=== PATIENT | male | born 1955 | race Caucasian/White ===

== ENCOUNTER 2019-05-21 08:04 | Outpatient (CLI) | payer BC, SELFPAY ==
--- NOTE | ~2019-05-21 | US_ITS ---
EXAMINATION: US abdomen complete DATE: 05/21/2019 09:27 INDICATION: Abdominal distention TECHNIQUE: Multiple grayscale and Doppler ultrasound images of the abdomen were obtained. COMPARISON: 05/26/2010; CT, 03/07/2016 FINDINGS: Bowel gas obscures visualization of the pancreas. The visualized portions of the pancreas are unremarkable. Cysts of the liver measure up to 1.2 cm. The liver is otherwise normal with normal echogenicity and echotexture. No surface nodularity. Normal hepatopetal flow in the main portal vein. The gallbladder is surgically absent. The normal common bile duct measures 4 mm. The visualized port ions of the aorta and inferior vena cava are normal. The right kidney measures 10.9 x 5.7 x 5.7 cm. The left kidney measures 10.2 x 6.4 x 5.3 cm. The kidn eys demonstrate normal parenchymal echogenicity. There is no hydronephrosis. The spleen is normal in appearance and measures 11.3 cm. IMPRESSION: 1. No sonographic correlate for the patient's symptoms. Reviewed, dictated and finalized at location A. TACKER
[2019-05-21 10:14] LABS: Basophils Absolute Auto 0.1 K/mm3 (0.0-0.1); Basophils Percent Auto 1.1 % (0.2-1.2); Eosinophils Absolute Auto 0.1 K/mm3 (0-0.3); Eosinophils Percent Auto 1.6 % (0-4.4); Hematocrit 44.2 % (42.0-52.0); Hemoglobin 14.9 g/dL (14.0-18.0); Immature Granulocyte Absolute 0.01 K/mm3 (0.00-0.031); Immature Granulocyte Percent A 0.2 % (0-0.5); Lymphocytes Absolute Auto 0.93 K/mm3 (0.9-3.2); Mean Corpuscular HGB Conc 33.7 g/dl (32-36); Mean Corpuscular Hemoglobin 30.8 pg (26-34); Mean Corpuscular Volume 91.3 fl (80-100); Monocytes Absolute Auto 0.4 K/mm3 (0.1-0.6); Monocytes Percent Auto 9.3 % (2.6-8.5); Neutrophils Percent Auto 66.8 % (45.5-73.1); Platelet Count Result 215 k/mm3 (150-375); Red Blood Count 4.84 M/mm3 (4.6-6.20); Red Cell Distribution Width 12.3 % (11.5-14.5); White Blood Count 4.4 K/mm3 (4.5-10.0)
[2019-05-21 10:27] LABS: Alanine Aminotransferase 35 U/L (4-50); Albumin Level 4.4 g/dL (3.5-5.1); Alkaline Phosphatase 40 U/L (38-126); Amylase 72 U/L (30-110); Aspartate Amino Transferase 31 U/L (17-59); Blood Urea Nitrogen 20 mg/dL (9-20); Calcium 9.4 mg/dL (8.4-10.2); Carbon Dioxide 29 mmol/L (22-30); Chloride 103 mmol/L (98-107); Estimated Glomerular Filt Rate > 60; Glucose 93 mg/dL (75-110); Lipase 76 U/L (23-300); Sodium 141 mmol/L (137-145)
== END 2019-05-21 08:05 | disposition home or self-care (01) ==
LOC: ANHIMG 08:11
PROVIDERS: PCP Internal Medicine; Visit Provider Internal Medicine
DX: R10.11 Right upper quadrant pain (principal); R14.0 Abdominal distension (gaseous)
CPT/HCPCS: 36415; 76700; 80048; 80076; 82150; 83690; 85025

== ENCOUNTER 2019-05-31 02:16 | Day surgery (SDC) | payer BC, SELFPAY ==
[2019-05-23 14:55] VITALS: BMI 25.0
[2019-05-31 09:10] VITALS: BP 147/82; PULSE 76; RESP 20; TEMP 36.3; O2SAT 100; BMI 25.6
--- NOTE | 2019-05-31 09:32 | P.PNAN_ITS ---
Anes - Initial Pre Proc Eval Procedure: Operation Date: 05/31/19 10:00 Proposed Procedures p Esophagogastroduodenoscopy - Timi Kaminski MD Date/Time: 05/31/19 09:32 Surgeon: Timi Kaminski MD Pre Op Diagnosis: RUQ Pain and Abdominal Distention Patient Data Age: 64 Gender: M Height: 1.78 m Weight: 79 kg Allergies Allergy/AdvReac Type Severity Reaction Status Date / Time prochlorperazine Allergy Severe ANXIETY, Verified 05/31/19 09:27 SOB Home Medications Medication Instructions Recorded Confirmed Type candesartan 32 mg tablet 32 mg PO DAILY PRN 02/12/19 05/23/19 History cholestyramine-aspartame 4 gram 4 gm PO BID 02/12/19 05/23/19 History oral powder for susp in a packet lorazepam 0.5 mg tablet 0.5 mg PO TID PRN 02/12/19 History rosuvastatin 20 mg tablet 20 mg PO DAILY 02/12/19 05/23/19 History azelastine-fluticasone 137 mcg-50 1 spray NASAL BID #23 gm 03/12/19 05/23/19 Rx mcg/spray nasal spray omega-3 fatty acids 1,000 mg 2,000 mg PO BID cap 04/09/19 History capsule amlodipine 5 mg tablet 5 mg PO DAILY #90 tablet 04/23/19 05/23/19 Rx pantoprazole 40 mg tablet,delayed 40 mg PO DAILY #30 tablet 05/21/19 05/23/19 Rx release Patient hx anesthesia problems: none Family hx anesthesia problems: none PMFSH Past Medical History Medical History (Updated 05/21/19 @ 07:11 by Jayashree Brooks CMA) Abdominal bloating Abdominal pain Benign essential hypertension BMI 26.0-26.9,adult Encounter for routine adult health examination without abnormal findings Encounter for special screening examination for neoplasm of prostate Hyperlipidemia Low back pain On retirement drug therapy Right hip pain Right knee meniscal tear Social History Social History Second hand tobacco smoke exposure: No Smoking end date: 03/28/80 Alcohol intake: current Gender identity (if verbalized by the patient): Male Anes - Eval Final PreProcedure Day of Procedure 03/05/20 09:32 Patient weight: normal Heart: regular rate and rhythm Lungs: clear to auscultation and normal air movement Airway: Mallampati scale class II Neurological: alert and oriented Last oral intake: >/= 8 hours ASA classification: II Emergent: no Anesthetic plan: proceed Anesthesia type and monitoring: general GIVS and standard monitoring Informed Consent: The patient's anesthetic plan and its attendant risks and benefits were discussed with the patient/family/POA. Questions were solicited and answers provided to the satisfaction of the patient/family/POA.
--- NOTE | 2019-05-31 09:48 | P.CONGI_ITS ---
Assessment and Plan Additional Plan This is a 64-year-old white male patient seen in evaluation at the request of Dr.Tibor Francois. patient reports right upper quadrant pain that spreads to the mid epigastric area associated with abdominal distention and bloating. Symptoms have been present for many weeks. He recently has started pantoprazole 40 mg p.o. daily over the last 10 days with slight improvement. Patient denies any dysphagia. He denies any weight loss. Recent ultrasound of the right upper quadrant was unremarkable. He has a history of a colonoscopy 7 years ago that was unremarkable. Family history noncontributory. Past medical history is significant for hypertension, hyperlipidemia, medications include amlodipine, candesartan, cholestyramine, lorazepam, fish oil, pantoprazole. Rosuvastatin. Physical exam reveals patient be somewhat anxious. Vital signs stable. HEENT exam unremarkable. He is anicteric. Lungs are clear to auscultation and percussion. Heart is without murmur or extra sounds. Abdominal exam bowel sounds are present soft nontender no masses are noted. His abdomen is mildly p rotuberant. impression right upper quadrant and epigastric pain. Associated with abdominal bloating and distention. Appears to be related to dietary intake. Sometimes better after eating. this may represent dyspepsia. plan: agree with proton pump inhibitor trial. An EGD will be performed. Further recommendations subsequently GI Consult Note Consult date/time: 05/31/19 09:48 HPI: Timi Ballesteros is a 64 year old male [facility], [facility] Past Medical History Medical History (Updated 05/21/19 @ 07:11 by Jayashree Brooks CMA) Abdominal bloating Abdominal pain Benign essential hypertension BMI 26.0-26.9,adult Encounter for routine adult health examination without abnormal findings Encounter for special screening examination for neoplasm of prostate Hyperlipidemia Low back pain On correction drug therapy Right hip pain Right knee meniscal tear Social History Social History Second hand tobacco smoke exposure: No Smoking end date: 03/28/80 Alcohol intake: current Gender identity (if verbalized by the patient): Male Meds Home Medications and Allergies Home Medications Medication Instructions Recorded Confirmed Type candesartan 32 mg tablet 32 mg PO DAILY PRN 02/12/19 05/23/19 History cholestyramine-aspartame 4 gram 4 gm PO BID 02/12/19 05/23/19 History oral powder for susp in a packet lorazepam 0.5 mg tablet 0.5 mg PO TID PRN 02/12/19 History rosuvastatin 20 mg tablet 20 mg PO DAILY 02/12/19 05/23/19 History azelastine-fluticasone 137 mcg-50 1 spray NASAL BID #23 gm 03/12/19 05/23/19 Rx mcg/spray nasal spray omega-3 fatty acids 1,000 mg 2,000 mg PO BID cap 04/09/19 History capsule amlodipine 5 mg tablet 5 mg PO DAILY #90 tablet 04/23/19 05/23/19 Rx pantoprazole 40 mg tablet,delayed 40 mg PO DAILY #30 tablet 05/21/19 05/23/19 Rx release Allergies Allergy/AdvReac Type Severity Reaction Status Date / Time prochlorperazine Allergy Severe ANXIETY, Verified 05/31/19 09:27 SOB Vital Signs Vital Signs - 24 hr 05/31/19 09:10 Temperature 36.3 C L Pulse Rate 76 Respiratory Rate 20 Blood Pressure 147/82
[2019-05-31] MEDS: LACTATED RINGERS 1,000 ML 150 ML IV CONT (09:50)
[2019-05-31] MEDS: MIDAZOLAM HCL 2 MG/2 ML VIAL IV PUSH (09:50)
[2019-05-31] MEDS: BENZOCAINE (*SP) 60 ML SPRAY CAN (HURRICAINE) 1 SPRAY MUCOUS MEM (10:05)
[2019-05-31 10:17] VITALS: BP 116/73; PULSE 78; RESP 22; O2SAT 98
[2019-05-31 10:27] VITALS: BP 120/77; PULSE 78; RESP 18; O2SAT 100
[2019-05-31 10:37] VITALS: BP 132/97; PULSE 77; RESP 19; O2SAT 100
== END 2019-05-31 10:56 | disposition home or self-care (01) ==
PROVIDERS: PCP Internal Medicine; Visit Provider Internal Medicine Gastroenterology
PROC: 0DJ08ZZ Inspection of Upper Intestinal Tract, Via Natural or Artificial Opening Endoscopic (ICD-10-PCS; CPT 43235; principal; 2019-05-31 10:00)
DX: R10.13 Epigastric pain (principal); R10.11 Right upper quadrant pain; I10 Essential (primary) hypertension; E78.5 Hyperlipidemia, unspecified
CPT/HCPCS: 43239; 87081; J2250; J2704; J7120

== ENCOUNTER 2020-03-07 11:51 | Emergency (ER) | payer MEDICARE, SELFPAY ==
--- NOTE | ~2020-03-07 | CT_ITS ---
EXAMINATION: CT abdomen pelvis w con DATE: 03/07/2020 13:57 INDICATION: Abdominal pain. Nausea. TECHNIQUE: Computed tomography (CT) of the abdomen and pelvis was performed with 100 mL Omnipaque 350 intravenous contrast. Automated exposure control and iterative reconstruction technique were employe d. The dose-length product was 544.95 mGy-cm. COMPARISON: CT abdomen and pelvis 03/07/2016 FINDINGS: The visualized portions of the lung bases demonstrate mild atelectasis. No pleural effusion . The heart size is normal. There are coronary artery calcifications. No pericardial effusion. There are cysts in the liver measuring up to 14 mm. There is an 8 mm mass in the spleen, likely granulomato us disease or a hemangioma. The pancreas and adrenal glands are normal. There is cortical thinning in right kidney. There is a 10 mm cyst in left kidney. Stool distends the rectum. There is diverticulos is of the colon without evidence of diverticulitis. The appendix is normal. There are no pathological ly enlarged lymph nodes. There is a small left inguinal hernia containing fat. There is no free intra peritoneal fluid. There is moderate lower lumbar spondylosis. IMPRESSION: 1. Stool distends the rectum. 2. Small left inguinal hernia containing fat. Reviewed, dictated and finalized at location B. ILE DYER
[2020-03-07 12:00] VITALS: BP 153/81; PULSE 70; RESP 18; TEMP 36.2; O2SAT 100
--- NOTE | 2020-03-07 13:01 | ED.ABDPAIN ---
HPI - Abdominal Pain General Chief Complaint: Abdominal Pain Stated Complaint: possible kidney stone Time Seen by Provider: 03/07/20 12:49 Source: RN notes reviewed History of Present Illness HPI narrative: Patient presents emergency room from home for abdominal pain. Patient states pain began approximately 8 AM this morning pain is located bilateral lower abdomen described as a pressure states is associated with nausea. He states that he does note feeling of needing to urinate but pain with urination he states he does have a history of kidney stones and this does feel like prior he denies any fevers or chills chest pain shortness of breath or any other symptoms states he took no previous pain medication at home Related Data Home Medications Medication Instructions Recorded Confirmed omega-3 fatty acids 1,000 mg 2,000 mg PO BID cap 04/09/19 01/28/20 capsule cholecalciferol (vitamin D3) 250 250 mcg PO DAILY 01/28/20 01/28/20 mcg (10,000 unit) capsule niacin 500 mg tablet 500 mg PO DAILY 01/28/20 01/28/20 Allergies Allergy/AdvReac Type Severity Reaction Status Date / Time prochlorperazine Allergy Severe ANXIETY, Verified 03/07/20 12:50 SOB Review of Systems Review of Systems: Narrative: Gen.: Denies fevers or chills ENT: Denies congestion Respiratory: Denies shortness of breath or cough CV: Denies chest pain or palpitations GI: See HPI reports pain with urination Musculoskeletal: Denies back pain or muscle pain Neuro: Denies numbness, tingling, weakness or focal weakness Skin: Denies rash Except as documented, all other systems reviewed and negative [facility] Past Medical History Medical History (Updated 03/07/20 @ 14:20 by Timmy Posey DO) Abdominal bloating Abdominal pain Benign essential hypertension BMI 25.0-25.9,adult BMI 26.0-26.9,adult Encounter for routine adult health examination without abnormal findings Encounter for special screening examination for neoplasm of prostate Follow up Hyperlipidemia Low back pain On alf drug therapy Right hip pain Right knee meniscal tear Family History Family History Mother Family history of chronic obstructive pulmonary disease Father Family history of diabetes mellitus in first degree relative Family history of heart disease in male family member before age 55 Diabetes mellitus Family history of cardiovascular disease Social History Social History Smoking status: Never smoker Second hand tobacco smoke exposure: No Smoking end date: 03/28/80 Alcohol intake: current Gender identity (if verbalized by the patient): Male Exam Narrative: Exam Narrative: APPEARANCE: No acute distress, nontoxic, resting in bed HEENT: Normocephalic, atraumatic, OMM RESPIRATORY: No respiratory distress, clear to auscultation bilaterally with no rhonchi wheezing or rales CARDIOVASCULAR: RRR s murmur ABDOMINAL: Soft, nondistended, tender palpation right lower quadrant left lower quadrant no tenderness right upper quadrant left lower quadrant no rebound or guarding MUSCULOSKELETAl: Moves all extremities. No clubbing, cyanosis or edema. NEURO: Awake and alert. Following commands, speech normal, no focal deficits SKIN:: Warm, dry. Normal Color PSYCHIATRIC: Normal affect/mood Course Course Emergency Course: Patient's abdomen is soft without significant pain or signs of surgical abdomen on serial exams. Lab and x-ray evaluations are reviewed and patient is felt to be a reasonable candidate for outpatient management. Patient was instructed as to limitations of x-ray and laboratory evaluation and encouraged to return to ED or primary physician for repeat exam in 12 hours if continued or worsening pain. I did discuss with patient CT results showing constipation I discussed enema in ED versus going home with magnesium citrate patient would prefer to go
[2020-03-07] MEDS: ONDANSETRON INJ 4 MG/2 ML VIAL IV PUSH (13:21)
[2020-03-07] MEDS: SODIUM CHLORIDE 0.9% IV 1,000 ML 999 ML IV CONT (13:22)
[2020-03-07 13:29] LABS: Basophils Percent Auto 0.5 % (0.2-1.2); Eosinophils Absolute Auto 0.1 K/mm3 (0-0.3); Eosinophils Percent Auto 1.3 % (0-4.4); Hematocrit 42.9 % (42.0-52.0); Hemoglobin 14.8 g/dL (14.0-18.0); Immature Granulocyte Absolute 0.02 K/mm3 (0.00-0.031); Immature Granulocyte Percent A 0.2 % (0-0.5); Lymphocytes Absolute Auto 0.83 K/mm3 (0.9-3.2); Lymphocytes Percent Auto 9.6 % (18.3-44.2); Mean Corpuscular HGB Conc 34.5 g/dl (32-36); Mean Corpuscular Hemoglobin 31.6 pg (26-34); Mean Corpuscular Volume 91.5 fl (80-100); Mean Platelet Volume 9.4 fl (7.4-10.4); Monocytes Absolute Auto 0.5 K/mm3 (0.1-0.6); Monocytes Percent Auto 6.2 % (2.6-8.5); Neutrophils Absolute Auto 7.1 K/mm3 (1.3-6.7); Neutrophils Percent Auto 82.2 % (45.5-73.1); Platelet Count Result 205 k/mm3 (150-375); Red Blood Count 4.69 M/mm3 (4.6-6.20); Red Cell Distribution Width 12.5 % (11.5-14.5); White Blood Count 8.7 K/mm3 (4.5-10.0)
[2020-03-07 13:31] LABS: Add Urine Microscopic? NO; Appearance Urine Clear (Clear); Bilirubin Urine Negative (Negative); Blood Urine Negative (Negative); Color Urine Yellow (Yellow); Glucose Urine UA Negative (Negative); Ketones Urine Negative (Negative); Leukocyte Esterase Ur Negative LEU/UL (Negative); Nitrate Urine Negative (Negative); Protein Urine Negative (Negative); Specific Grav Ur 1.021 (1.001-1.035); Urobilinogen Urine Negative mg/dL (<2.0)
[2020-03-07 13:42] LABS: Alanine Aminotransferase 53 U/L (4-50); Alkaline Phosphatase 51 U/L (38-126); Anion Gap 5 mmol/L (8-16); Aspartate Amino Transferase 51 U/L (17-59); Blood Urea Nitrogen 23 mg/dL (9-20); Calcium 9.1 mg/dL (8.4-10.2); Carbon Dioxide 29 mmol/L (22-30); Chloride 102 mmol/L (98-107); Estimated CRCL calculation 83 ml/min; Estimated Glomerular Filt Rate > 60; Glucose 102 mg/dL (75-110); Lipase 75 U/L (23-300); Sodium 136 mmol/L (137-145)
== END 2020-03-07 14:38 | disposition home or self-care (01) ==
PROVIDERS: Emergency Provider Emergency Medicine; PCP Internal Medicine
DX: K59.00 Constipation, unspecified (principal); E78.5 Hyperlipidemia, unspecified
CPT/HCPCS: 36415; 74177; 80053; 81003; 83690; 85025; 96361; 96374; 96375; 99284; J0131; J2405; J7030; Q9967

== ENCOUNTER 2020-08-07 11:11 | Emergency (ER) | payer MEDICARE, SELFPAY ==
[2020-08-07 11:25] VITALS: BP 147/94; PULSE 74; RESP 15; TEMP 36.4; O2SAT 100
--- NOTE | 2020-08-07 12:02 | ED.GENADULT ---
HPI - General Adult General Chief complaint: Wound/Laceration Stated complaint: Lacertion on forehead Time Seen by Provider: 08/07/20 11:42 Source: patient and RN notes reviewed Mode of arrival: ambulatory (carried) Limitations: no limitations History of Present Illness HPI narrative: 65-year-old male presents with complaints of lacerations to face caused by hitting face on car trunk for the past 30 minutes. Timi reports walking into raised trunk on car causing facial injury. Pressure applied to control bleeding and came to [facility] treatment. No loss of consciousness, blurred vision, double vision, dizziness, or seizure activity. Denies vertigo or immobility. Denies nausea or vomiting. Tolerating po intake well. Denies pain, numbness or tingling, or weakness of upper or lower extremities. No foreign body sensation. Tetanus not up-to-date, Timi refuse tetanus today. Remains active. The patient reports he have not been diagnosed with COVID-19. The patient reports he received 2 Pfizer COVID-19 vaccines, last over a month ago. The patient reports he had to wait 4 months before any other vaccines. The patient reports he is not waiting for the results of a COVID-19 lab test. The patient reports he do not have chills, weakness, or fatigue. The patient reports he do not have a new or worsening cough or shortness of breath. Denies chest pain. The patient reports he do not have any rhinorrhea, congestion, loss of taste or smell, sore throat, abdominal pain, and diarrhea. Denies recent traveling. Denies concerns for COVID-19 or exposures been home with limited outdoor exposure except for essential household needs, work, and return home. At this time, patient is not suspected of having COVID-19. Some parts of this dictation were generated by voice recognition software and may contain typographical and/or grammatical inaccuracies Related Data Home Medications Medication Instructions Recorded Confirmed omega-3 fatty acids 1,000 mg 2,000 mg PO BID cap 04/09/19 08/07/20 capsule niacin 500 mg tablet 500 mg PO DAILY 01/28/20 08/07/20 Allergies Allergy/AdvReac Type Severity Reaction Status Date / Time prochlorperazine Allergy Severe ANXIETY, Verified 08/07/20 11:15 SOB Review of Systems Review of Systems: Narrative: CONSTITUTIONAL: Denies fever, chills, sweats. EYES: Denies visual changes, redness, discharge. ENT: Denies rhinorrhea, congestion, sore throat, otalgia. CARDIOVASCULAR: Denies chest pain, palpitations, edema. RESPIRATORY: Denies dyspnea, wheezing, cough. GASTROINTESTINAL: Denies abdominal pain, nausea, vomiting, diarrhea. SKIN: Denies rash or itching. Complains of lacerations to nose and above left eye. MUSCULOSKELETAL: Denies acute back pain, joint pain, or myalgia. NEUROLOGIC: Denies numbness or focal weakness. PSYCHIATRIC: Denies anxiety or depression. All other systems reviewed are negative, except as documented in HPI and below. 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
== END 2020-08-07 12:10 | disposition home or self-care (01) ==
PROVIDERS: Emergency Provider Nurse Practitioner Family; PCP Internal Medicine
DX: S01.21XA Laceration without foreign body of nose, initial encounter (principal); W22.8XXA Striking against or struck by other objects, initial encounter; Z87.891 Personal history of nicotine dependence; F41.9 Anxiety disorder, unspecified; I10 Essential (primary) hypertension; K21.9 Gastro-esophageal reflux disease without esophagitis; E78.5 Hyperlipidemia, unspecified
CPT/HCPCS: 12011; 99213; G0463

== ENCOUNTER 2021-01-30 01:44 | Day surgery (SDC) | payer MEDICARE, SELFPAY ==
[2021-01-19 14:36] VITALS: BMI 25.1
[2021-01-30 08:08] VITALS: BP 122/78; PULSE 82; RESP 20; TEMP 36.4; O2SAT 98; BMI 25.0
[2021-01-30] MEDS: LACTATED RINGERS 1,000 ML 150 ML IV CONT (08:14)
--- NOTE | 2021-01-30 08:15 | WPDANESEPPF ---
Anes - Initial Pre Proc Eval Procedure: Operation Date: 01/30/21 09:00 Proposed Procedures p Colonoscopy - Timi Kaminski MD Date/Time: 01/30/21 08:15 Surgeon: Timi Kaminski MD Pre Op Diagnosis: change in bowel habits Patient Data Age: 65 Gender: M Height: 1.78 m Weight: 79 kg Last Vital Signs Temp 36.4 C L 01/30/21 08:08 Pulse 82 01/30/21 08:08 Resp 20 01/30/21 08:08 BP 122/78 01/30/21 08:08 Pulse Ox 98 01/30/21 08:08 Allergies Allergy/AdvReac Type Severity Reaction Status Date / Time prochlorperazine Allergy Severe ANXIETY, Verified 01/30/21 08:06 SOB Home Medications Medication Instructions Recorded Confirmed Type omega-3 fatty acids 1,000 mg 2,000 mg PO BID cap 04/09/19 01/20/21 History capsule niacin 500 mg tablet 500 mg PO DAILY 01/28/20 01/20/21 History aspirin 81 mg tablet,delayed 81 mg PO DAILY #1 tablet 01/29/20 01/20/21 Rx release bupropion HCl 150 mg 24 hr tablet, 150 mg PO QAM #90 tablet 01/29/20 01/20/21 Rx extended release cephalexin 500 mg PO BID 5 Days #10 cap 08/07/20 01/20/21 Rx amlodipine 2.5 mg tablet See Rx Instructions .ROUTE 08/26/20 01/20/21 Rx .COMPLEX #90 tablet candesartan 32 mg tablet See Rx Instructions .ROUTE 08/26/20 01/20/21 Rx .COMPLEX #90 tablet rosuvastatin 20 mg tablet See Rx Instructions .ROUTE 08/26/20 01/20/21 Rx .COMPLEX #90 tablet azelastine-fluticasone 137 mcg-50 See Rx Instructions .ROUTE 10/21/20 01/20/21 Rx mcg/spray nasal spray .COMPLEX #3 ea cholecalciferol (vitamin D3) 1,250 See Rx Instructions .ROUTE 01/20/21 Rx mcg (50,000 unit) capsule .COMPLEX #10 cap inulin 2 gram chewable tablet See Rx Instructions PO .COMPLEX 01/21/21 History Patient hx anesthesia problems: none Family hx anesthesia problems: none Results Review: All pre-operative results and documents have been reviewed as part of the pre-operative evaluation. [facility] Past Medical History Medical History Abdominal bloating Abdominal pain Anxiety Benign essential hypertension BMI 25.0-25.9,adult BMI 26.0-26.9,adult Change in bowel habits Constipation Encounter for routine adult health examination without abnormal findings Encounter for special screening examination for neoplasm of prostate Family history of colonic polyps Follow up GERD (gastroesophageal reflux disease) Hyperlipidemia Low back pain On custodial drug therapy Right hip pain Right knee meniscal tear Surgical History Surgical History History of arthroscopic knee surgery bilateral History of cholecystectomy Family History Family History Mother Family history of chronic obstructive pulmonary disease Father Family history of diabetes mellitus in first degree relative Family history of heart disease in male family member before age 55 Diabetes mellitus Family history of cardiovascular disease Social History Social History Smoking packs per day: 1 Smoking cigarettes per day: 20.0 Years smoked: 4 Smoking pack-years: 4.00 Smoking status: Former smoker Tobacco type: cigarettes Second hand tobacco smoke exposure: No Smoking end date: 03/28/80 Alcohol intake: current Drinks per week: 14 Alcohol use details: 2 glasses wine per night Substance use: never Substance use type: does not use Living arrangements: with family Gender identity (if verbalized by the patient): Male Sexual Orientation (if Verbalized by the Patient): Straight or Heterosexual Spiritual care concerns: No Anes - Eval Final PreProcedure Day of Procedure 01/30/21 08:15 Patient weight: normal Heart: regular rate and rhythm Lungs: clear to auscultation Airway: Mallampati scale class II Neurological: alert and oriented Last o
--- NOTE | 2021-01-30 08:48 | WPDGICN ---
Assessment and Plan Assessment and plan (1) Change in bowel habits: Code(s): R19.4 - Change in bowel habit Status: Acute Assessment and Plan: Patient has had alteration in bowel habits with increasing constipation. Plan is for patient be on more fiber. Further recommendations will be given after colonoscopy to evaluate this change. (2) Constipation: Qualifiers: Constipation type: unspecified constipation type Qualified Code(s): K59.00 - Constipation, unspecified Code(s): K59.00 - Constipation, unspecified Status: Acute Assessment and Plan: Patient has increasing constipation and for this reason fiber supplementation is encouraged. Occasional use of laxatives may be necessary. Further recommendations may be given after endoscopy. (3) Family history of colonic polyps: Code(s): Z83.71 - Family history of colonic polyps Status: Acute Assessment and Plan: Old records reflect a family history of colon polyps in patient's father. Patient states this is a somewhat uncertain at this time. GI Consult Note Consult date/time: 01/30/21 08:48 HPI: Timi Ballesteros is a 65 year old male Presents for colonoscopy. Patient has recently noticed in alteration in his bowel habits. As an increasing tendency towards constipation. He denies any weight loss or bleeding. He has tried to eat more fiber. He states oranges help to a great deal. Root meredith also seems to help. He denies any abdominal pain. He presents today for screening examination. In the past it was felt his father had colon polyps today patient states this is not a certainty. Screening colonoscopy suggested today. Review of Systems Review of Systems: All systems reviewed & are unremarkable except as noted in HPI and below PMFSH Past Medical History Medical History Abdominal bloating Abdominal pain Anxiety Benign essential hypertension BMI 25.0-25.9,adult BMI 26.0-26.9,adult Change in bowel habits Constipation Encounter for routine adult health examination without abnormal findings Encounter for special screening examination for neoplasm of prostate Family history of colonic polyps Follow up GERD (gastroesophageal reflux disease) Hyperlipidemia Low back pain On fdc drug therapy Right hip pain Right knee meniscal tear Surgical History Surgical History History of arthroscopic knee surgery bilateral History of cholecystectomy Family History Family History Mother Family history of chronic obstructive pulmonary disease Father Family history of diabetes mellitus in first degree relative Family history of heart disease in male family member before age 55 Diabetes mellitus Family history of cardiovascular disease Social History Social History Smoking packs per day: 1 Smoking cigarettes per day: 20.0 Years smoked: 4 Smoking pack-years: 4.00 Smoking status: Former smoker Tobacco type: cigarettes Second hand tobacco smoke exposure: No Smoking end date: 03/28/80 Alcohol intake: current Drinks per week: 14 Alcohol use details: 2 glasses wine per night Substance use: never Substance use type: does not use Living arrangements: with family Gender identity (if verbalized by the patient): Male Sexual Orientation (if Verbalized by the Patient): Straight or Heterosexual Spiritual care concerns: No Meds Home Medications and Allergies Home Medications Medication Instructions Recorded Confirmed Type omega-3 fatty acids 1,000 mg 2,000 mg PO BID cap 04/09/19 01/20/21 History capsule niacin 500 mg tablet 500 mg PO DAILY 01/28/20 01/20/21 History aspirin 81 mg tablet,delayed 81 mg PO DAILY #1 tablet 01/29/20 01/20/21 Rx
[2021-01-30 09:18] VITALS: BP 110/75; PULSE 77; RESP 16; O2SAT 99
[2021-01-30 09:28] VITALS: BP 118/75; PULSE 74; RESP 18; O2SAT 100
[2021-01-30 09:38] VITALS: BP 141/88; PULSE 72; RESP 20; O2SAT 100
== END 2021-01-30 09:52 | disposition home or self-care (01) ==
PROVIDERS: PCP Internal Medicine; Visit Provider Internal Medicine Gastroenterology
PROC: 0DJD8ZZ Inspection of Lower Intestinal Tract, Via Natural or Artificial Opening Endoscopic (ICD-10-PCS; CPT 45378; principal; 2021-01-30 09:00)
DX: K59.00 Constipation, unspecified (principal); K64.8 Other hemorrhoids; K57.30 Diverticulosis of large intestine without perforation or abscess without bleeding; K63.89 Other specified diseases of intestine; Z83.71 Family history of colonic polyps; F41.9 Anxiety disorder, unspecified; I10 Essential (primary) hypertension; K21.9 Gastro-esophageal reflux disease without esophagitis; E78.5 Hyperlipidemia, unspecified; Z87.891 Personal history of nicotine dependence; Z79.82 Long term (current) use of aspirin; Z79.4 Long term (current) use of insulin
CPT/HCPCS: 45378; J2704; J7120

== ENCOUNTER 2022-09-30 12:14 | Outpatient (CLI) | payer MEDICARE, SELFPAY ==
--- NOTE | ~2022-09-30 | XR_ITS ---
Right Shoulder Technique: AP and scapular Y views were obtained. Clinical History: Pain Findings: No fracture or dislocation is seen. Osseous alignment is anatomic. There is mild AC joint d egenerative change. Glenohumeral joint is intact. Soft tissues are unremarkable. Impression: Mild AC joint degenerative change. Reviewed, dictated and finalized at location . Impression: Mild AC joint degenerative change.
== END 2022-09-30 12:15 | disposition home or self-care (01) ==
PROVIDERS: PCP Internal Medicine; Visit Provider Internal Medicine
DX: M19.011 Primary osteoarthritis, right shoulder (principal)
CPT/HCPCS: 73030

== ENCOUNTER 2023-05-19 10:50 | Outpatient (CLI) | payer MEDICARE, SELFPAY | END 2023-05-19 10:51 | disposition home or self-care (01) | LOC: ANHAUDIO 10:51 | PROVIDERS: PCP Internal Medicine; Visit Provider Internal Medicine | DX: H93.19 Tinnitus, unspecified ear (principal); H90.3 Sensorineural hearing loss, bilateral | CPT/HCPCS: 92557; 92567 ==

== ENCOUNTER 2024-07-18 20:18 | Emergency (ER) | payer MEDICARE, SELFPAY ==
--- NOTE | ~2024-07-18 | XR_ITS ---
CHEST RADIOGRAPH CLINICAL HISTORY: cp . COMPARISON: 05/05/2018 TECHNIQUE: Single portable view of the chest. FINDINGS The cardiomediastinal silhouette is unremarkable. The lungs are clear. IMPRESSION: No focal infiltrate or effusion. Reviewed, dictated and finalized at location A.
[2024-07-18 20:20] VITALS: BP 162/138; PULSE 84; RESP 16; TEMP 36.6; O2SAT 100
--- NOTE | 2024-07-18 20:20 | ECG_ITS ---
Test Date: 2024-07-18 20:30:41 Measurements Intervals [place] Rate: 78 P: 52 DE: 177 QRS: 5 QRSD: 105 T: 43 QT: 363 QTc: 415 Interpretive Statements SINUS RHYTHM INCOMPLETE RIGHT BUNDLE BRANCH BLOCK BASELINE ARTIFACT- I, V1-V2 BORDERLINE ECG No previous ECG available for comparison Electronically Signed On 07-19-2024 05:13:27 CDT by Gabo Erwin D.O.
--- OUTSIDE RECORDS SUMMARY | 2024-07-18 20:21 | XMS_ITS | Clinical Summary ---
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 Gender Identity Not on file Sexual Orientation Not on file Last Filed Vital Signs Vital Sign Reading Time Taken Comments Blood Pressure 111/85 04/13/2023 10:46 AM PERMASTONE INSTALLER Pulse - - Temperature - - Respiratory Rate - - Oxygen Saturation - - Inhaled Oxygen Concentration - - Weight - - Height - - Body Mass Index - - Plan of Treatment Health Maintenance Due Date Last Done Comments Colon Cancer Screening-Colonoscopy 1955 Depression Screening 1955 Fall Risk Assessment 1955 Hepatitis C Screening 1955 Prostate Cancer Screening-PSA 1955 DTaP/Tdap/Td Vaccine (1 - Tdap) 1966 Hepatitis B Screening 1973 Abdominal Aortic Aneurysm (A AA) Screen 02/06/2020 Well Visit 65+ 02/06/2020 Pneumococcal vaccine 65+ (2 of 2 - PPSV23) 02/06/2021 02/07/2020 Covid-19 Vaccine ( season) 2023 12/11/2020, 06/09/2020, 05/19/2020 Influenza Vaccine (#1) 2023 02/16/2021, 2019 Zoster Vaccine Completed 05/14/2021, 02/16/2021 Insurance MEDICARE [facility]ICARE [facility] Care Teams Insurance Claims Supervisor Relationship Specialty Start Date End Date Dinh Francois MD [address] [facility] [address] [place], [place] [id number] PCP - General Internal Medicine 06/12/21
--- OUTSIDE RECORDS SUMMARY | 2024-07-18 20:21 | XMS_ITS | Referral Summary ---
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 Gender Identity Not on file Sexual Orientation Not on file Last Filed Vital Signs Vital Sign Reading Time Taken Comments Blood Pressure 111/85 04/13/2023 10:46 AM PRECISION LENS TECHNICIAN Pulse - - Temperature - - Respiratory Rate - - Oxygen Saturation - - Inhaled Oxygen Concentration - - Weight - - Height - - Body Mass Index - - Plan of Treatment Not on file Insurance MEDICARE [employer] MEDICARE [facility] Address: [address] [address] [employer] Care Teams Junior Accounting Clerk Relationship Specialty Start Date End Date Dinh Francois MD [address] [facility] [address] [place] [address] PCP - General Internal Medicine 06/12/21
--- OUTSIDE RECORDS SUMMARY | 2024-07-18 20:21 | XMS_ITS | Data Portability ---
Author Organization [employer], [facility] Address [address] [address] Care Team Providers Care Literature Professor Name Role Phone MICHAEL SUGGS Primary Care Provider Unavailabl e Assessment No assessment recorded. Plan of Treatment Reminders Order Date Submit Date Provider Last Modified By Organization Details Last Modified Time Details Appointments None recorded. Lab None recorded. Referral None recorded. Procedures None recorded. Surgeries None recorded. Imaging XR, knee - rm 15 2017 018 [facility] Not available 8 15:26:39 MRI, knee, w/o contrast - MMT, MCL sprain 2017 018 [facility], [address], [place], [address], 8 15:26:39 Medication Orders diclofenac sodium 75 mg tablet,nakita yed release 2017 018 [id number] [facility], [address], [place], [address], 8 14:44:52 Patient TargetsNo targets recorded. Patient InstructionsNo instructions recorded. Reason for Referral None Reported. Problems No Known Problems Medical Equipment None Reported. Allergies No known drug allergies Medications Name Sig Start Date Stop Date Status Note LastModified by Organization Details LastModified Time cefuroxime axetil 250 mg tablet active Not Available Not Available Not Available sulfamethoxaz ole 800 mg-trimethopr im 160 mg tablet 11/24 completed Not Available Not Available Not Available Cholestyramin e Light 4 gram powder for suspension in a packet 11/24 completed Not Available Not Available Not Available candesartan 32 mg tablet active Not Available Not Available Not Available diclofenac sodium 75 mg tablet,delaye d release Take 1 tablet twice a day by oral route. 2017 active Not Available Not Available Not Avai lable doxycycline hyclate 100 mg tablet 11/24 completed Not Available Not Available Not Available amoxicillin 500 mg-potassium clavulanate 125 mg tablet 11/24 completed Not Available Not Available Not Available rosuvastatin 10 mg tablet 11/24 completed Not Available Not Available Not Available rosuvastatin 20 mg tablet active Not Available Not Available Not Available Dymista 137 mcg-50 mcg/spray nasal spray 11/24 completed Not Available Not Available Not Available Vitals Date Recorded Body height Body mass index (BMI) Body weight Heart rate Systolic blood pressure Diastolic blood pressure Provider Name and Address Organization Details Last Updated DateTime 8 177.8 cm 25.8 kg/m2 43204.6 3 g 74 /min 131 mm[Hg] 81 mm[Hg] [facility] [facility] 8 10:17:21 Social History Question Answer Notes LastModified by [employer] Details LastModified Time Tobacco Smoking Status Never Smoker [facility] [employer] 11/24/2017 10:18:49 What Is Your Level Of Alcohol Consumption? Moderate Information not available 11/24/2017 Are You Currently Employed? 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 11/24/2017 Information not available 10/19/2018 How Much Tobacco Do You Smoke? No Information not available 11/24/2017 What Types Of Sporting Activities Do You Participate In? Yard Work Information not available 11/24/2017 Sex: Unknown Functional Status Question Answer Note LastModified by Organizat ion Details LastModified Time What is your exercise level? Occasional Information not available 11/24/2017 Mental Status None recorded. Family History Relationship Description Onset Age of this Age Resolved Age Notes LastModified by Organization Details LastModified Time Father Heart disease Not available 2017 10:18:10 Father Hypercholest erolemia Not available 2017 10:18:16 Father Diabetes mellitus Not available 2017 10:18:22 Father Hypertensive disorder Not available 2017 10:18:31 Mother Malignant tumor of breast Not available 2017 10:18:44 Medical History Condition Response HIV or AIDS N Coronary Artery Disease N Gout N Kidney Stones N Hyperthyroidism N Head Trauma/Injury N Hernia N Hypothyroidism N Lung Disease N Blood Clots N COPD N Depression N Pacemaker N Anxiety Disorder N Arthritis N Cancer N Stroke N Leg or Foot Ulcers N Neck Injury N High Cholesterol N Liver Disease N Rheumatoid Arthritis N Fibromyalgia N Headaches N Kidney Disease N Heart Problems N Migraines N Thyroid Problems N Anemia N Multiple Sclerosis N Tendon Tear N Ulcers N Heart Attack ([place]) N Diabetes N Bleeding Disorder N Seizures/Epilepsy N Tuberculosis N Urinary Tract Infection N Back Problems N Diverticulitis N Asthma N Lupus N Peripheral Vascular Disease N Sleep Disorder N GERD/Reflux N Hepatitis N Aneurysm N Heart Disease N Pulmonary Embolism N Hypertension N Osteoporosis N Past Encounters Encounter ID Performer Location Encounter Start Date Encounter Closed Date Diagnosis/Indication Diagnosis SNOMED-CT Code Diagnosis ICD10 Code Diagnosis Note [id number] [facility] [address] [facility] [address] [place] [address] 11/24/2017 10:00:39 11/24/2017 15:26:39 Pain in left knee [id number] M25.562 Health Concerns Section Related Observation LastModified by Organization Detai ls LastModified Time None Recorded Concern Status LastModified by Organization Details LastModified Time None Recorded Advance Directives Directive None Recorded Payers Encounter Date Sequence Insurance Name Policy Number Policy Flowers Covered Member ID Flowers Member ID Guarantor Name 11/24/2017 1 [place]: MARY BCCELIA (PPO) [id number] Timi Ballesteros [id number] Timi Ballesteros
[2024-07-18 20:43] LABS: Basophils Absolute Auto 0.1 K/mm3 (0.0-0.1); Basophils Percent Auto 0.9 % (0.2-1.2); Eosinophils Absolute Auto 0.1 K/mm3 (0-0.3); Eosinophils Percent Auto 2.6 % (0-4.4); Hematocrit 42.9 % (42.0-52.0); Hemoglobin 14.9 g/dL (14.0-18.0); Immature Granulocyte Absolute 0.01 K/mm3 (0.00-0.031); Immature Granulocyte Percent A 0.2 % (0-0.5); Lymphocytes Absolute Auto 1.29 K/mm3 (0.9-3.2); Lymphocytes Percent Auto 24.4 % (18.3-44.2); Mean Corpuscular HGB Conc 34.7 g/dl (32-36); Mean Corpuscular Hemoglobin 31.5 pg (26-34); Mean Corpuscular Volume 90.7 fl (80-100); Mean Platelet Volume 9.4 fl (7.4-10.4); Monocytes Absolute Auto 0.5 K/mm3 (0.1-0.6); Monocytes Percent Auto 8.7 % (2.6-8.5); Neutrophils Absolute Auto 3.3 K/mm3 (1.3-6.7); Neutrophils Percent Auto 63.2 % (45.5-73.1); Platelet Count Result 206 k/mm3 (150-375); Red Blood Count 4.73 M/mm3 (4.6-6.20); Red Cell Distribution Width 12.5 % (11.5-14.5); White Blood Count 5.3 K/mm3 (4.5-10.0)
[2024-07-18] MEDS: ASPIRIN 81 MG CHEWABLE TABLET 324 MG PO (20:44)
[2024-07-18 20:45] VITALS: O2SAT 100
--- NOTE | 2024-07-18 20:49 | PC.NURSE ---
EDP Dr. Diamond BARRETO 5mg IVP Valium. Dose verified via read back method.
[2024-07-18 20:53] LABS: Alanine Aminotransferase 55 U/L (6-50); Albumin Level 4.4 g/dL (3.5-5.1); Alkaline Phosphatase 48 U/L (38-126); Anion Gap 10 mmol/L (4-12); Aspartate Amino Transferase 41 U/L (17-59); Bilirubin,Total 1.1 mg/dL (0.2-1.3); Blood Urea Nitrogen 19 mg/dL (9-20); Calcium 9.2 mg/dL (8.4-10.2); Carbon Dioxide 23 mmol/L (22-30); Chloride 105 mmol/L (98-107); Estimated CRCL calculation 63 ml/min; Estimated Glomerular Filt Rate > 60; Glucose 126 mg/dL (65-110); Lipase 70 U/L (23-300); Potassium 3.8 mmol/L (3.4-5.0); Sodium 138 mmol/L (137-145)
[2024-07-18] MEDS: diazePAM INJ (*CRX) 10 MG/2 ML SYRINGE 5 MG IV PUSH (20:54)
[2024-07-18 20:56] LABS: INR 0.9; Partial Thromboplastin Time 28.4 Seconds (22.3-36.8); Prothrombin Time 12.5 Seconds (11.1-14.7)
[2024-07-18 21:04] LABS: Troponin I < 0.012 ng/mL (0.000-0.034)
--- OUTSIDE RECORDS SUMMARY | 2024-07-18 22:03 | XMS_ITS | Referral Summary ---
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 Gender Identity Not on file Sexual Orientation Not on file Last Filed Vital Signs Vital Sign Reading Time Taken Comments Blood Pressure 111/85 04/13/2023 10:46 AM SUPERVISORY IT SPECIALIST Pulse - - Temperature - - Respiratory Rate - - Oxygen Saturation - - Inhaled Oxygen Concentration - - Weight - - Height - - Body Mass Index - - Plan of Treatment Not on file Insurance MEDICARE [employer] MEDICARE [facility] Address: [address] [address] [employer] Care Teams Oil Agent Relationship Specialty Start Date End Date Dinh Francois MD [address] [facility] [address] [place] [address] PCP - General Internal Medicine 06/12/21
--- OUTSIDE RECORDS SUMMARY | 2024-07-18 22:03 | XMS_ITS | Clinical Summary ---
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 Gender Identity Not on file Sexual Orientation Not on file Last Filed Vital Signs Vital Sign Reading Time Taken Comments Blood Pressure 111/85 04/13/2023 10:46 AM MOVEMENT THERAPIST Pulse - - Temperature - - Respiratory [...] Zoster Vaccine Completed 05/14/2021, 02/16/2021 Insurance MEDICARE [employer] Address: [address] [place] [id number] [employer] Care Teams Radio Message Router Relationship Specialty Start Date End Date Dinh Francois MD [address] [facility] [address] [facility] [address] [place], [place] [id number] PCP - General Internal Medicine 06/12/21
[2024-07-18 23:40] VITALS: BP 119/76; PULSE 95; RESP 17; O2SAT 100
[2024-07-19 00:17] LABS: Troponin I < 0.012 ng/mL (0.000-0.034)
--- NOTE | 2024-07-19 00:17 | ED_ITS ---
HPI - General Adult General Chief complaint: Arrhythmia/Palpitations Stated complaint: feels like my pulse is erratic Time Seen by Provider: 07/18/24 20:39 History of Present Illness HPI narrative: This is a 69-year-old male with history of anxiety panic attacks presenting palpitations. Patient states he had a very stressful day at work. When driving home felt like his heart was racing. [place] like it was skipping beats. He became very shaky. Patient says this is how his panic attacks usually feel. He tried to lay down and relax but was unsuccessful. He then came to the ED for evaluation. Patient denies chest pain, shortness of breath abdominal pain nausea vomiting or diarrhea. His symptoms have improved but he still feels anxious. Related Data Home Medications ?Medication ?Instructions ?Recorded ?Confirmed ?Last Taken ?Type omega-3 fatty acids 1,000 mg 2,000 mg PO BID 04/09/19 06/14/24 01/28/21 History capsule (Fish Oil Concentrate) niacin 500 mg tablet 500 mg PO DAILY 01/28/20 06/14/24 01/28/21 History mecobalamin (vitamin B12) 1,000 1,000 mcg sublingual DAILY 11/23/23 06/14/24 Unknown History mcg disintegrating tablet,sublingual cholecalciferol (vitamin D3) 50 100 mcg PO DAILY 04/04/24 06/14/24 Unknown History mcg (2,000 unit) capsule Allergies Allergy/AdvReac Type Severity Reaction Status Date / Time prochlorperazine Allergy Severe ANXIETY, Verified 07/18/24 20:19 SOB PMF Past Medical History Medical History Balance problem Nausea Light headedness Personal history of COVID-19 Colon cancer screening Precancerous skin lesion Rib pain on right side Sternal pain Myxomatous mitral valve Right shoulder pain Tachycardia Onychomycosis Lump in chest Lateral epicondylitis of right elbow Impotence of organic origin Hx of shortness of breath Hemorrhoids Acute meniscal tear of left knee Prostate cancer screening Palpitations Encounter for Medicare annual wellness exam Postsurgical dumping syndrome Constipation Family history of colonic polyps Change in bowel habits GERD (gastroesophageal reflux disease) Anxiety BMI 25.0-25.9,adult Follow up Abdominal bloating Abdominal pain BMI 26.0-26.9,adult Encounter for routine adult health examination without abnormal findings Right knee meniscal tear Right hip pain Low back pain On 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 intermediary drug therapy Benign essential hypertension Hyperlipidemia Surgical History Surgical History S/P arthroscopy of left knee History of arthroscopic knee surgery bilateral History of cholecystectomy Family History Family History Mother Family history of chronic obstructive pulmonary disease Father Family history of diabetes mellitus in first degree relative Family history of heart disease in male family member before age 55 Diabetes mellitus Family history of cardiovascular disease Social History Social History Smoking packs per day: 1 Smoking cigarettes per day: 20.0 Years smoked: 4 Smoking pack-years: 4.00 Smoking status: Former smoker Tobacco type: cigarettes Second hand tobacco smoke exposure: No Smoking end date: 03/28/80 Alcohol intake: current Drinks per week: 14 Alcohol use details: 2 glasses wine per night Substance use: never Substance use type: does not use Lack of Transportation: No Lack of Food: Never True Current Housing: I Have Housing Concerned About Future Housing: No Difficulty Paying Gas/Electric Bills: No Difficulty Paying for Meds: No Currently Unemployed: No Education: Bachelor's Degree Difficulty w/ Childcare or Family Care: No Living arrangements: with family Occupation/Education: occupation Gender identity (if verbalized by the patient): Male Sexual Orientation (if Verbalized by the Patient): Straight or Heterosexual Spiritual care concerns: No Exam 2 Narrative: APPEARANCE: Anxious appearing Head: atraumatic. EYES: EOMI, NOSE: Atraumatic NECK: Trachea midline RESPIRATORY: No increased rate of breathing CTAB CARDIOVASCULAR: RRR, no peripheral edema ABDOMINAL: Non-distended nontender MUSCULOSKELETAl: No obvious deformities NEURO: Alert. Moving 4/4 extremities SKIN:: Warm, dry. Normal color PSYCHIATRIC: Normal affect Course Vital Signs Vital signs: Vital Signs Temperature 97.9 F 07/18/24 20:20 Pulse Rate 84 07/18/24 20:20 Respiratory Rate 16 07/18/24 20:20 Blood Pressure 162/138 H 07/18/24 20:20 Pulse Oximetry 100 07/18/24 20:20 Oxygen Delivery Room Air 07/18/24 20:20 Temperature 97.9 F 07/18/24 20:20 Pulse Rate 95 07/18/24 23:40 Respiratory Rate 17 07/18/24 23:40 Blood Pressure 119/76 07/18/24 23:40 Pulse Oximetry 100 07/18/24 23:40 Oxygen Delivery Room Air 07/18/24 20:45 Medical Decision Making MDM Narrative Medical decision making narrative: -Course: 69-year-old male presenting for palpitations. EKG showed normal sinus rhythm. No dysrhythmias the telemetry monitoring during his stay. Laboratory studies including troponins x2 were unremarkable. Chest x-ray clear. Patient received a dose of Valium which he says helped immensely. He has been resting comfortably in our ED no complaints since then. Patient will be discharged follow-up with primary care physician. -DDX includes but is not limited to: Anxiety, panic disorder, a trial fibrillation, SVT Independent EKG interpretation: Rhythm [sinus], Rate [78], [place] -[normal], [place] -[normal], QRS [narrow], QTC [normal], T waves -[negative for concerning inversions], ST Segments - [Negative for concerning elevations] Final interpretations: [Normal Sinus Rhythm] Vital Signs Vital Signs: Vital Signs Temperature 97.9 F 07/18/24 20:20 Pulse Rate 84 07/18/24 20:20 Respiratory Rate 16 07/18/24 20:20 Blood Pressure 162/138 H 07/18/24 20:20 Pulse Oximetry 100 07/18/24 20:20 Oxygen Delivery Room Air 07/18/24 20:20 Temperature 97.9 F 07/18/24 20:20 Pulse Rate 95 07/18/24 23:40 Respiratory Rate 17 07/18/24 23:40 Blood Pressure 119/76 07/18/24 23:40 Pulse Oximetry 100 07/18/24 23:40 Oxygen Delivery Room Air 07/18/24 20:45 Lab Data 07/18/24 20:37 07/18/24 20:37 Labs: Lab Results 07/18/24 07/18/24 07/18/24 Range/Units 20:36 20:37 23:52 WBC 5.3 (4.5-10.0) K/mm3 RBC 4.73 (4.6-6.20) M/mm3 Hgb 14.9 (14.0-18.0) g/dL Hct 42.9 (42.0-52.0) % MCV 90.7 (80-100) fl MCH 31.5 (26-34) pg MCHC 34.7 (32-36) g/dl RDW 12.5 (11.5-14.5) % Plt Count 206 (150-375) k/mm3 MPV 9.4 (7.4-10.4) fl Immature Gran % (Auto) 0.2 (0-0.5) % Neut % (Auto) 63.2 (45.5-73.1) % Lymph % (Auto) 24.4 (18.3-44.2) % [place] % (Auto) 8.7 H (2.6-8.5) % Eos % (Auto) 2.6 (0-4.4) % Baso % (Auto) 0.9 (0.2-1.2) % Lymph # (Auto) 1.29 (0.9-3.2) K/mm3 [place] # (Auto) 0.5 (0.1-0.6) K/mm3 Eos # (Auto) 0.1 (0-0.3) K/mm3 Baso # (Auto) 0.1 (0.0-0.1) K/mm3 Abs Immat Gran (auto) 0.01 (0.00-0.031) K/mm3 Absolute Neuts (auto) 3.3 (1.3-6.7) K/mm3 Absolute Nucleated RBC 0.000 (0.0-0.012) K/mm3 Nucleated RBC % 0.0 (0.0-0.2) % PT 12.5 (11.1-14.7) Seconds INR 0.9 APTT 28.4 (22.3-36.8) Seconds Sodium 138 (137-145) mmol/L Potassium 3.8 (3.4-5.0) mmol/L Chloride 105 (98-107) mmol/L Carbon Dioxide 23 (22-30) mmol/L Anion Gap 10 (4-12) mmol/L BUN 19 (9-20) mg/dL Creatinine 1.01 (0.7-1.3) mg/dL Estim Creat Clear Calc 63 ml/min Estimated GFR > 60 (59 - ) Glucose 126 H (65-110) mg/dL Calcium 9.2 (8.4-10.2) mg/dL Total Bilirubin 1.1 (0.2-1.3) mg/dL AST 41 (17-59) U/L ALT 55 H (6-50) U/L Alkaline Phosphatase 48 (38-126) U/L Troponin I < 0.012 < 0.012 (0.000-0.034) ng/mL Total Protein 7.0 (6.3-8.2) g/dL Albumin 4.4 (3.5-5.1) g/dL Lipase 70 (23-300) U/L Discharge Plan Discharge Clinical Impression: Panic attack, Stress Patient Disposition: Home Condition: Stable Instructions: Antibiotic Form, Heart Palpitations (DC) Additional Instructions: You were seen in the emergency department for palpitations. Your workup here was reassuring. Please follow-up with your primary care physician for further management. If you develop any new or worsening symptoms please return to the ED for re-evaluation. Patient Language: Yakut Prescriptions: No Action niacin 500 mg tablet 500 mg PO DAILY mecobalamin (vitamin B12) 1,000 mcg tablet,disintegrating 1,000 mcg sublingual DAILY Rx Instructions: place tablet under tongue and allow to dissolve for at least30 secs before swallowing lorazepam 0.5 mg tablet 0.5 mg PO DAILY PRN (Reason: anxiety) Qty: 30 0RF cholecalciferol (vitamin D3) 50 mcg (2,000 unit) capsule 100 mcg PO DAILY omega-3 fatty acids [Fish Oil Concentrate] 1,000 mg capsule 2,000 mg PO BID cefuroxime axetil 250 mg tablet See Rx Instructions .ROUTE .COMPLEX Qty: 180 2RF Dose Instruction: TAKE 1 TABLET DAILY Rx Instructions: TAKE 1 TABLET DAILY; BID for flareups rosuvastatin 20 mg tablet See Rx Instructions .ROUTE .COMPLEX Qty: 90 3RF Dose Instruction: TAKE 1 TABLET DAILY Rx Instructions: TAKE 1 TABLET DAILY metoprolol succinate 25 mg tablet extended release 24 hr See Rx Instructions .ROUTE .COMPLEX Qty: 90 1RF Dose Instruction: TAKE 1 TABLET BY MOUTH DAILY - PLEASE STOP THE AMLODIPINE. Rx Instructions: TAKE 1 TABLET BY MOUTH DAILY - PLEASE STOP THE AMLODIPINE. azelastine-fluticasone 137-50 mcg/spray spray,non-aerosol See Rx Instructions .ROUTE .COMPLEX Qty: 3 3RF Dose Instruction: USE 1 SPRAY IN EACH NOSTRIL TWO TIMES A DAY Rx Instructions: USE 1 SPRAY IN EACH NOSTRIL TWO TIMES A DAY bupropion HCl 300 mg tablet extended release 24 hr See Rx Instructions .ROUTE .COMPLEX Qty: 90 1RF Dose Instruction: TAKE 1 TABLET BY MOUTH EVERY MORNING Rx Instructions: TAKE 1 TABLET BY MOUTH EVERY MORNING candesartan 32 mg tablet See Rx Instructions .ROUTE .COMPLEX Qty: 90 1RF Dose Instruction: TAKE 1 TABLET BY MOUTH EVERY DAY FOR BLOOD PRESSURE Rx Instructions: TAKE 1 TABLET BY MOUTH EVERY DAY FOR BLOOD PRESSURE Follow-up/Referrals: Dinh Francois MD [Primary Care Provider] - 1 Week (anxiety )
[2024-07-19 00:29] VITALS: BP 120/77; PULSE 64; RESP 14; TEMP 36.7; O2SAT 98
== END 2024-07-19 00:31 | disposition home or self-care (01) ==
PROVIDERS: Emergency Provider Emergency Medicine; PCP Internal Medicine
DX: F43.0 Acute stress reaction (principal); K21.9 Gastro-esophageal reflux disease without esophagitis; E78.5 Hyperlipidemia, unspecified; I10 Essential (primary) hypertension; Z87.891 Personal history of nicotine dependence
CPT/HCPCS: 36415; 71045; 80053; 83690; 84484; 85025; 85610; 85730; 93005; 96374; 99284; A9270; J3360

== ENCOUNTER 2024-09-24 10:40 | Outpatient (CLI) | payer MEDICARE, SELFPAY ==
--- NOTE | ~2024-09-24 | CT_ITS ---
CT soft tissue neck w con Ordering provider: Dinh Francois MD History: 69 years Male with . R22.1 - Localized swelling, mass and lump, neck . Comparison: None. Technique: CT soft tissues neck was performed with contrast. . Automated exposure control and iterat brian reconstruction technique were employed. The dose-length product was 441.16 mGy-cm. 75 mL Omnipaqu e 350 was given IV. Findings: LOWER HEAD: The visualized brain parenchyma, optic globes/orbits and mastoids are normal. The visua lized paranasal sinuses are well aerated. SALIVARY GLANDS: The right parotid gland is slightly larger than the left. Clinical correlation advi sed. Other glands are unremarkable. THYROID: Normal. SUPRAHYOID DEEP SPACES: Normal. CAROTID ARTERIES: Normal. JUGULAR VEINS: Normal. TONSILS: Normal. ORAL CAVITY: Partially obscured by dental amalgam but normal as visualized. PHARYNX, LARYNX AND TRACHEA: Patent and normal. No prevertebral soft tissue swelling. SUPERFICIAL SOFT TISSUES: Normal. No lymphadenopathy or neck mass. THORACIC INLET/VISUALIZED UPPER CHEST: Normal. SKELETAL: Age appropriate degenerative changes. IMPRESSION: 1. Slightly enlarged right parotid gland compared to the left. Otherwise, Normal CT neck. Clinical c orrelation and follow-up advised Reviewed, dictated and finalized at location A. IMPRESSION: 1. Slightly enlarged right parotid gland compared to the left. Otherwise, Norm al CT neck. Clinical correlation and follow-up advised
[2024-09-24 10:59] LABS: Estimated Glomerular Filt Rate 60
== END 2024-09-24 10:41 | disposition home or self-care (01) ==
LOC: MICIMG 10:41
PROVIDERS: PCP Internal Medicine; Visit Provider Internal Medicine
DX: R22.1 Localized swelling, mass and lump, neck (principal); K11.1 Hypertrophy of salivary gland
CPT/HCPCS: 70491; Q9967

== ENCOUNTER 2025-02-19 12:21 | Outpatient (CLI) | payer MEDICARE, SELFPAY ==
--- NOTE | ~2025-02-19 | CT_ITS ---
CT abdomen pelvis w con Clinical History: R10.11 - Right upper quadrant pain . Comparison: CT abdomen pelvis 03/07/2020 Technique: Axial images lung bases to symphysis pubis IV contrast information not listed in PACS Coronal, sagittal reformats CT images acquired with automatic exposure control for dose reduction DLP: 555 mGy-cm Findings: Lung bases: Clear. Visualized heart and pericardium: Unremarkable. Liver: A few small cysts. Gallbladder: Removed. Spleen: Unremarkable. Pancreas: Unremarkable. Adrenal glands: Unremarkable. Kidneys: Right kidney- No hydronephrosis. Tiny stone. Left kidney- No hydronephrosis. No renal stones. Distal esophagus/stomach: Unremarkable. Small bowel loops: Normal caliber and wall thickness. Colon: Diverticula. Normal caliber and wall thickness. Normal RLQ appendix. Nodes: No enlarged nodes. Peritoneum: No ascites. No free air. Urinary bladder: Mild wall thickening. Prostate: Mild intravesicular protrusion. Bones: No acute bony abnormality. Soft tissues: Small left inguinal hernia with fat. Aorta: No aneurysm or dissection. IVC: Unremarkable. Main portal vein/SMV/splenic vein: Patent. IMPRESSION: 1. No acute abnormality. 2. Tiny stone right kidney but no hydronephrosis. 3. Other findings as above. Reviewed, dictated and finalized at location R. TOR OPERATOR
[2025-02-19 13:24] LABS: Hematocrit 43.8 % (42.0-52.0); Hemoglobin 15.0 g/dL (14.0-18.0); Immature Granulocyte Percent A 0.2 % (0-0.5); Lymphocytes Absolute Auto 1.22 K/mm3 (0.9-3.2); Mean Corpuscular HGB Conc 34.2 g/dl (32-36); Mean Corpuscular Hemoglobin 31.8 pg (26-34); Mean Corpuscular Volume 92.8 fl (80-100); Nucleated Red Blood Cells Absolute Auto 0.000 K/mm3 (0.0-0.012); Nucleated Red Blood Cells Perc 0.0 % (0.0-0.2); Platelet Count Result 228 k/mm3 (150-375); Red Blood Count 4.72 M/mm3 (4.6-6.20); White Blood Count 5.5 K/mm3 (4.5-10.0)
[2025-02-19 13:43] LABS: Alanine Aminotransferase 39 U/L (6-50); Albumin Level 4.3 g/dL (3.5-5.1); Alkaline Phosphatase 43 U/L (38-126); Amylase 80 U/L (30-110); Anion Gap 6 mmol/L (4-12); Aspartate Amino Transferase 40 U/L (17-59); Bilirubin,Total 1.0 mg/dL (0.2-1.3); Blood Urea Nitrogen 17 mg/dL (9-20); Calcium 9.1 mg/dL (8.4-10.2); Carbon Dioxide 30 mmol/L (22-30); Chloride 102 mmol/L (98-107); Estimated Glomerular Filt Rate > 60; Glucose 86 mg/dL (65-110); Lipase 61 U/L (23-300); Potassium 4.0 mmol/L (3.4-5.0); Sodium 138 mmol/L (137-145); Total Protein 7.3 g/dL (6.3-8.2)
--- OUTSIDE RECORDS SUMMARY | 2025-02-19 13:52 | XMS_ITS | Clinical Summary ---
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 Gender Identity Not on file Sexual Orientation Not on file Last Filed Vital Signs Vital Sign Reading Time Taken Comments Blood Pressure 111/85 04/13/2023 10:46 AM EARLY CHILDHOOD ASSOCIATE Pulse - - Temperature - - Respiratory Rate - - Oxygen Saturation - - Inhaled Oxygen Concentration - - Weight - - Height - - Body Mass Index - - Plan of Treatment Not on file Insurance MEDICARE [employer] MED[employer]ARE [employer] Care Teams Outside Sales Representative Relationship Specialty Start Date End Date Dinh Francois MD PCP - General Internal Medicine 06/12/21
== END 2025-02-19 12:22 | disposition home or self-care (01) ==
LOC: ANHLAB 12:29
PROVIDERS: PCP Internal Medicine; Visit Provider Internal Medicine
DX: R10.11 Right upper quadrant pain (principal); R11.0 Nausea; R14.0 Abdominal distension (gaseous); R10.9 Unspecified abdominal pain; Z79.899 Other long term (current) drug therapy; N20.0 Calculus of kidney
CPT/HCPCS: 36415; 74177; 80053; 82150; 83690; 85025; Q9967

== ENCOUNTER 2025-02-26 03:33 | Day surgery (SDC) | payer MEDICARE, SELFPAY ==
[2025-02-25 09:16] VITALS: BMI 25.9
--- OUTSIDE RECORDS SUMMARY | 2025-02-26 03:36 | XMS_ITS | Clinical Summary ---
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
--- OUTSIDE RECORDS SUMMARY | 2025-02-26 03:36 | XMS_ITS | Data Portability ---
Author Organization [facility], [facility] Address [address] [address] Care Team Providers Care Psych Therapist Name Role Phone MICHAEL SUGGS Primary Care Provider Unavailabl e Assessment No assessment recorded. Plan of Treatment Reminders Order Date Submit Date Provider Last Modified By Organization Details Last Modified Time Details Appointments None recorded. Lab None recorded. Referral None recorded. Procedures None recorded. Surgeries None recorded. Imaging XR, knee - rm 15 2017 018 [facility] Not available 8 15:26:39 MRI, knee, w/o contrast - MMT, MCL sprain 2017 018 [facility], [address] [facility], [place], [address], 8 15:26:39 Medication Orders diclofenac sodium 75 mg tablet,nakita yed release 2017 018 [facility] [id number] [facility], [address], [place], [address], 8 14:44:52 Patient TargetsNo targets recorded. Patient [...] index (BMI) Body weight Heart rate Systolic And Diastolic Provider Name and Address Organization Details Last Updated DateTime 11/24/2017 177.8 cm 25.8 kg/m2 85401.63 g 74 /min 131/81 mm[Hg] [facility] 11/24/2017 10:17:21 Social History Question Answer Notes LastModified by [employer] Details LastModified Time Tobacco Smoking Status Never Smoker [facility] [employer] or [employer] 11/24/2017 10:18:49 Marital Status Informatio n not available 11/24/2017 [...] ion Details LastModified Time What is your level of alcohol consumption? Moderate Information not available 11/24/2017 Are you currently employed? 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 Occasional Information not available 11/24/2017 Mental Status None recorded. Family History Relationship Description Onset Age of this Age Resolved Age Notes LastModified by Organization Details LastModified Time Father Heart disease Not available 2017 10:18:10 Father Hypercholest erolemia Not available 2017 10:18:16 Father Diabetes mellitus Not available 2017 10:18:22 Father Hypertensive disorder Not available 2017 10:18:31 Mother Malignant neoplasm of breast Not available 2017 10:18:44 Medical History Condition Response HIV or AIDS N Coronary Artery Disease N Gout N Kidney Stones N Hyperthyroidism N Hernia N Head Trauma/Injury N Hypothyroidism N Blood Clots N COPD N Depression N Lung Disease N Pacemaker N Anxiety Disorder N Arthritis N Cancer N Stroke N Leg or Foot Ulcers N Neck Injury N High Cholesterol N Liver Disease N Rheumatoid Arthritis N Fibromyalgia N Headaches N Kidney Disease N Heart Problems N Migraines N Thyroid Problems N Anemia N Multiple Sclerosis N [place]endon Tear N Ulcers N Heart Attack (SD) N Diabetes N Bleeding Disorder N Seizures/Epilepsy [...] Diagnosis SNOMED-CT Code Diagnosis ICD10 Code Diagnosis IMO Codes Diagnosis Note [id number] Jackson Em MD [facility] [address] [facility] [place] [id number] 11/24/2017 10:00:39 11/24/2017 15:26:39 Pain in left knee [id number] M25.562 Health Concerns Section Related Observation LastModified by Organization Detai ls LastModified Time None Recorded Concern Status LastModified by Organization Details LastModified Time None Recorded Advance Directives Directive None Recorded Payers Insurance Date Sequence Insurance Name Policy Number Policy Flowers Covered Member ID Flowers Member ID Guarantor Name 11/24/2017 1 [employer] ([place]) [id number] Timi Ballesteros [id number] Timi Ballesteros
[2025-02-26 08:10] VITALS: BP 132/85; PULSE 69; RESP 16; TEMP 36.2; O2SAT 100; BMI 26.3
[2025-02-26] MEDS: LACTATED RINGERS 1,000 ML 150 ML IV CONT (08:27)
--- NOTE | 2025-02-26 08:56 | P.PNAN_ITS ---
Anes - Initial Pre Proc Eval Procedure: Operation Date: 02/26/25 09:30 Proposed Procedures p Esophagogastroduodenoscopy - Joel Levy MD Date/Time: 02/26/25 08:56 Surgeon: Joel Levy MD Pre Op Diagnosis: Gastro-esophageal reflux disease without esophagit Patient Data Age: 70 Gender: M Height: 1.78 m Weight: 83.2 kg Last Vital Signs Temp 36.2 C L 02/26/25 08:10 Pulse 69 02/26/25 08:10 Resp 16 02/26/25 08:10 BP 132/85 02/26/25 08:10 Pulse Ox 100 02/26/25 08:10 O2 Del Method Room Air 02/26/25 08:10 Allergies Allergy/AdvReac Type Severity Reaction Status Date / Time prochlorperazine Allergy Severe ANXIETY, Verified 02/26/25 08:16 SOB Home Medications ?Medication ?Instructions ?Recorded ?Confirmed ?Type niacin 500 mg tablet 500 mg PO DAILY 01/28/2005/22 History cefuroxime axetil 250 mg tablet See Rx Instructions .R oute 10/17/23 02/26/25 Rx .COMPLEX #180 tabs lorazepam 0.5 mg tablet 0.5 mg PO DAILY PRN anxiety #30 11/23/23 02/25/25 Rx tabs mecobalamin (vitamin B12) 1,000 1,000 mcg sublingual D AILY 11/23/23 02/26/25 History mcg disintegrating tablet,sublingual cholecalciferol (vitamin D3) 50 100 mcg PO DAILY 04/0402/26/25 History mcg (2,000 unit) capsule metoprolol succinate 25 mg See Rx Instructions .Route 10/08/24 02/26/25 Rx tablet,extended release 24 hr .COMPLEX #90 tabs azelastine 137 mcg-fluticasone 50 See Rx Instructions .Route 10/11/24 02/26/25 Rx mcg/spray nasal spray .COMPLEX #3 ea bupropion HCl 300 mg 24 hr tablet, See Rx Instructions .Route 11/12/24 02/26/25 Rx extended release .COMPLEX #90 tabs candesartan 32 mg tablet See Rx Instructions .Route 0 11/12/24 02/26/25 Rx .COMPLEX #90 tabs rosuvastatin 20 mg tablet See Rx Instructions .Route 0 11/12/24 02/26/25 Rx .COMPLEX #90 tabs [place] Rhubarb 500 mg PO DAILY 02/06/2505/22 History omega-3 fatty acids 1,000 mg 2,000 mg PO BID 02/06/25 02/26/25 History capsule (Fish Oil Concentrate) pantoprazole 40 mg tablet,delayed 40 mg PO BID #180 ta bs 02/19/25 02/26/25 Rx release Patient hx anesthesia problems: none Family hx anesthesia problems: none Results Review: All pre-operative results and documents have been reviewed as part of the pre- operative evaluation. [facility] Past Medical History Medical History Urinary frequency Encounter for routine adult health examination with abnormal findings Localized swelling, mass and lump, neck BMI 27.0-27.9,adult Epicondylitis Balance problem Nausea Light headedness Personal history of COVID-19 Colon cancer screening Precancerous skin lesion Rib pain on right side Sternal pain Myxomatous mitral valve Right shoulder pain Tachycardia Onychomycosis Lump in chest Lateral epicondylitis of right elbow Impotence of organic origin Hx of shortness of breath Hemorrhoids Acute meniscal tear of left knee Prostate cancer screening Palpitations Encounter for Medicare annual wellness exam Postsurgical dumping syndrome Constipation Family history of colonic polyps Change in bowel habits GERD (gastroesophageal reflux disease) Anxiety BMI 25.0-25.9,adult Follow up Abdominal bloating Abdominal pain BMI 26.0-26.9,adult Encounter for routine adult health examination without abnormal findings Right knee meniscal tear Right hip pain Low back pain On correction drug therapy Benign essential hypertension Hyperlipidemia Surgical History Surgical History S/P arthroscopy of left knee History of arthroscopic knee surgery bilateral History of cholecystectomy Family History Family History Mother Family history of chronic obstructive pulmonary disease Father Family history of diabetes mellitus in first degree relative Family history of heart disease in male family member before age 55 Diabetes mellitus Family history of cardiovascular disease Social History Social History Smoking packs per day: 1 Smoking cigarettes per day: 20.0 Years smoked: 5 Smoking pack-years: 5.00 Smoking status: Former smoker Tobacco type: cigarettes Second hand tobacco smoke exposure: No Smoking end date: 03/28/80 Alcohol intake: current Drinks per week: 10 Alcohol use details: 2 glasses wine per night Substance use: never Substance use type: does not use Lack of Transportation: No Lack of Food: Never True Current Housing: I Have Housing Concerned About Future Housing: No Difficulty Paying Gas/Electric Bills: No Difficulty Paying for Meds: No Currently Unemployed: No Education: Bachelor's Degree Difficulty w/ Childcare or Family Care: No Living arrangements: with family Occupation/Education: occupation Gender identity (if verbalized by the patient): Male Sexual Orientation (if Verbalized by the Patient): Straight or Heterosexual Spiritual care concerns: No Anes - Eval Final PreProcedure Day of Procedure 02/26/25 08:56 Patient weight: overweight Heart: regular rate and rhythm Lungs: clear to auscultation Airway: Mallampati scale class III Neurological: alert and oriented Last oral intake: >/= 8 hours ASA classification: III Emergent: no Anesthetic plan: proceed Anesthesia type and monitoring: general GIVS and standard monitoring Results Review: All pre-operative results and documents have been reviewed as part of the pre- operative evaluation. Informed Consent: The patient's anesthetic plan and its attendant risks and benefits were discussed with the patient/family/POA. Questions were solicited and answers provided to the satisfaction of the patient/family/POA.
--- NOTE | 2025-02-26 09:17 | PM.HPGS ---
History of Present Illness History of Present Illness Consent: Risks, benefits, and alternatives have been discussed and questions answered. Patient agrees to proceed with procedure. Chief complaint: Gastro-esophageal reflux disease without esophagit Narrative: Timi Ballesteros is a 70 year old male with bloating, ct scan negative Review of Systems Review of Systems: All systems reviewed & are unremarkable except as noted in HPI and below PMFSH Past Medical History Medical History Urinary frequency Encounter for routine adult health examination with abnormal findings Localized swelling, mass and lump, neck BMI 27.0-27.9,adult Epicondylitis Balance problem Nausea Light headedness Personal history of COVID-19 Colon cancer screening Precancerous skin lesion Rib pain on right side Sternal pain Myxomatous mitral valve Right shoulder pain Tachycardia Onychomycosis Lump in chest Lateral epicondylitis of right elbow Impotence of organic origin Hx of shortness of breath Hemorrhoids Acute meniscal tear of left knee Prostate cancer screening Palpitations Encounter for Medicare annual wellness exam Postsurgical dumping syndrome Constipation Family history of colonic polyps Change in bowel habits GERD (gastroesophageal reflux disease) Anxiety BMI 25.0-25.9,adult Follow up Abdominal bloating Abdominal pain BMI 26.0-26.9,adult Encounter for routine adult health examination without abnormal findings Right knee meniscal tear Right hip pain Low back pain 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 Benign essential hypertension Hyperlipidemia Surgical History Surgical History S/P arthroscopy of left knee History of arthroscopic knee surgery bilateral History of cholecystectomy Family History Family History Mother Family history of chronic obstructive pulmonary disease Father Family history of diabetes mellitus in first degree relative Family history of heart disease in male family member before age 55 Diabetes mellitus Family history of cardiovascular disease Social History Social History Smoking packs per day: 1 Smoking cigarettes per day: 20.0 Years smoked: 5 Smoking pack-years: 5.00 Smoking status: Former smoker Tobacco type: cigarettes Second hand tobacco smoke exposure: No Smoking end date: 03/28/80 Alcohol intake: current Drinks per week: 10 Alcohol use details: 2 glasses wine per night Substance use: never Substance use type: does not use Lack of Transportation: No Lack of Food: Never True Current Housing: I Have Housing Concerned About Future Housing: No Difficulty Paying Gas/Electric Bills: No Difficulty Paying for Meds: No Currently Unemployed: No Education: Bachelor's Degree Difficulty w/ Childcare or Family Care: No Living arrangements: with family Occupation/Education: occupation Gender identity (if verbalized by the patient): Male Sexual Orientation (if Verbalized by the Patient): Straight or Heterosexual Spiritual care concerns: No Meds Home Medications and Allergies Home Medications ?Medication ?Instructions ?Recorded ?Confirmed ?Type niacin 500 mg tablet 500 mg PO DAILY 01/28/20 02/26/25 History cefuroxime axetil 250 mg tablet See Rx Instructions .Route 10/17/23 02/26/25 Rx .COMPLEX #180 tabs lorazepam 0.5 mg tablet 0.5 mg PO DAILY PRN anxiety #30 11/23/23 02/25/25 Rx tabs mecobalamin (vitamin B12) 1,000 1,000 mcg sublingual DAILY 11/23/23 02/26/25 History mcg disintegrating tablet,sublingual cholecalciferol (vitamin D3) 50 100 mcg PO DAILY 04/04/24 02/26/25 History mcg (2,000 unit) capsule metoprolol succinate 25 mg See Rx Instructions .Route 10/08/24 02/26/25 Rx tablet,extended release 24 hr .COMPLEX #90 tabs azelastine 137 mcg-fluticasone 50 See Rx Instructions .Route 10/11/24 02/26/25 Rx mcg/spray nasal spray .COMPLEX #3 ea bupropion HCl 300 mg 24 hr tablet, See Rx Instructions .Route 11/12/24 02/26/25 Rx extended release .COMPLEX #90 tabs candesartan 32 mg tablet See Rx Instructions .Route 11/12/24 02/26/25 Rx .COMPLEX #90 tabs rosuvastatin 20 mg tablet See Rx Instructions .Route 11/12/24 02/26/25 Rx .COMPLEX #90 tabs [place] Rhubarb 500 mg PO DAILY 02/06/25 02/26/25 History omega-3 fatty acids 1,000 mg 2,000 mg PO BID 02/06/25 02/26/25 History capsule (Fish Oil Concentrate) pantoprazole 40 mg tablet,delayed 40 mg PO BID #180 tabs 02/19/25 02/26/25 Rx release Allergies Allergy/AdvReac Type Severity Reaction Status Date / Time prochlorperazine Allergy Severe ANXIETY, Verified 02/26/25 08:16 SOB Vital Signs Vital Signs - 24 hr 02/26/25 08:10 Temperature 97.2 F L Pulse Rate 69 Respiratory Rate 16 Blood Pressure 132/85 Pulse Oximetry 100 Oxygen Delivery Room Air Exam Const: General: comfortable and no acute distress HENMT: Face/Nose/Sinus: Normal nares present Eyes: General: appearance normal, both eyes and all related structures Resp: Auscultation: clear to auscultation bilaterally Cardio: Rate: regular rate Rhythm: regular rhythm GI: Inspection: non-distended GI Palp: Yes Soft to palpation Skin: General skin exam: normal color Extrem: General: normal to inspection Psych: Mental Status: mental status grossly normal Assessment and Plan Assessment and plan (1) Abdominal bloating: Code(s): R14.0 - Abdominal distension (gaseous) Status: Acute Assessment and Plan: egd with bx
--- NOTE | 2025-02-26 09:24 | S_PTH ---
PATIENT: Timi Ballesteros LOC: [facility]#:[id number] AGE/SX: 70/M ROOM: RE02/26/[address]: Joel Levy MD : 1955 BED: DIS: 02/26/2025 SPEC #: [id number] RECD: 02/26/25 10:23 STATUS: JAZIEL REMiguelangel #: [id number] CLARY: 02/26/25 09:[address]: Joel Levy DEPT: [facility] Surgical RECD BY: Angeline Walker ENTERED: 02/26/25 10:23 SP TYPE: Surgical OTHR DR: Dinh Francois MD Tissues: A - Gastric Biopsy B - Small Bowel Bx Procedures: Hematoxylin and Eosin Stain Gross and Microscopic Level 4
[2025-02-26 09:28] VITALS: BP 124/72; PULSE 63; RESP 15; O2SAT 99
[2025-02-26 09:38] VITALS: BP 119/73; PULSE 60; RESP 15; O2SAT 100
[2025-02-26 09:48] VITALS: BP 122/76; PULSE 65; RESP 19; O2SAT 100
== END 2025-02-26 09:58 | disposition home or self-care (01) ==
PROVIDERS: PCP Internal Medicine; Referring Provider Internal Medicine; Visit Provider Internal Medicine Gastroenterology
PROC: 0DJ08ZZ Inspection of Upper Intestinal Tract, Via Natural or Artificial Opening Endoscopic (ICD-10-PCS; CPT 43239; principal; 2025-02-26 09:30)
DX: R14.3 Flatulence (principal); R14.0 Abdominal distension (gaseous); Z87.891 Personal history of nicotine dependence
CPT/HCPCS: 43239; 88305; J2003; J2704; J7120